=== PATIENT | female | born 1985 | race Caucasian/White ===

== ENCOUNTER 2018-01-04 16:00 | Emergency (ER) | payer OTHER | END 2018-01-04 21:24 | disposition home or self-care (01) | LOC: C.ER 16:00 | DX: O99.013 Anemia complicating pregnancy, third trimester (principal); Z3A.29 29 weeks gestation of pregnancy ==

== ENCOUNTER 2018-01-04 16:00 | Inpatient (IN) | payer OTHER ==
--- NOTE | 2018-01-04 19:14 | OBHP ---
Datetime: 01/04/2018 19:10 IP Adm Impression: , intrauterine IP Chief Complaint Other: nst Admit Comment, IP Provider: pt is here for nst for anemia, no ctxs, vb,lof+fm. obhx primi pmh den med pnv all nkda psh de nst 130 a/p at 29+weeks for anemia go to er for admission hematolgy consultion dr dominic ortiz f/u Pelvic Type - PN: Adequate Extremities - PN: Normal Abdomen - PN: Normal Back - PN: Normal Breast - PN: Normal Lungs - PN: Normal Heart - PN: Normal Thyroid - PN: Normal Neurologic - PN: Normal HEENT - PN: Normal General - PN: Normal FHR - Baseline A Provider: 130 Contraction Comments Provider: none Vital Signs Provider: Reviewed; Within Normal Limits NICHD Variability Prov Fetus A: Moderate 6-25bpm NICHD Accel Fetus A IP Provider: [id number] FHR Category Provider Fetus A: Category I Genitourinary Exam: Normal DTRs - PN: Normal
--- NOTE | 2018-01-04 19:14 | OBDCSUM ---
Datetime: 01/04/2018 17:12 Discharged to, Provider: Home Disch Instr Activity: Normal activity Disch Instr Diet: Regular Discharge Time: 01/04/2018 17:12 Disch Referrals: None Disch Activity Restrictions: No lifting Discharge Comment, Provider: go to er for admission hematolgy consultion dr dominic ortiz f/u Discharge Diagnosis Prov Other: 29wee anemia nst
--- NOTE | 2018-01-04 19:50 | C.PDOC ---
History Of Present Illness 32 year old female who is 29 weeks present to the ER with a complaint of feeling weak and lightheaded. Patient has been following up with her PMD in [place], she was found to be anemic with a hemoglobin of 9.4 in 10/2017. Patient has been taking her vitamins with iron, however, today she was found with a hemoglobin of 8.6. Patient was transferred from [place] to [facility], she had a negative screening and was brought down to the ER for evaluation and admission. Denies chest pain, SOB, abdominal pain, or vaginal bleeding. Time Seen by Provider: 01/04/18 18:56 Chief Complaint (Nursing): Abnormal Labs History Per: Patient History/Exam Limitations: no limitations Onset/Duration Of Symptoms: Hrs Current Symptoms Are (Timing): Still Present Recent travel outside of the [place]: No Past Medical History Reviewed: Historical Data, Nursing Documentation, Vital Signs Vital Signs: Last Vital Signs Temp 98.7 F 01/04/18 20:16 Pulse 105 H 01/04/18 20:16 Resp 14 01/04/18 20:16 BP 125/69 01/04/18 20:16 Pulse Ox 99 01/04/18 20:16 Surgical History: Cholecystectomy Family History: States: Unknown Family Hx - Social History Hx Alcohol Use: No Hx Substance Use: No - Immunization History Hx Tetanus Toxoid Vaccination: No Hx Influenza Vaccination: Yes Hx Pneumococcal Vaccination: No Review Of Systems Constitutional: Positive for: Weakness. Negative for: Fever, Chills Cardiovascular: Positive for: Light Headedness. Negative for: Chest Pain Respiratory: Negative for: Shortness of Breath Gastrointestinal: Negative for: Abdominal Pain Genitourinary: Negative for: Vaginal Bleeding Physical Exam - Physical Exam Appears: Non-toxic, No Acute Distress Skin: Normal Color, Warm, Dry Head: Atraumatic, Normacephalic Eye(s): bilateral: Normal Inspection Oral Mucosa: Moist Neck: Normal, Supple Chest: Symmetrical, No Tenderness Cardiovascular: Rhythm Regular Respiratory: Normal Breath Sounds, No Rales, No Rhonchi, No Wheezing Gastrointestinal/Abdominal: Soft, No Tenderness Back: No CVA Tenderness Neurological/Psych: Oriented x3, Normal Speech ED Course And Treatment - Laboratory Results Result Diagrams: 01/04/18 19:57 01/04/18 19:57 O2 Sat by Pulse Oximetry: 99 (Room air) Pulse Ox Interpretation: Normal Progress Note: Blood work ordered. Case discussed with Dr. Briseyda Chamberlain who will accept patient for admission to her service. Disposition Counseled Patient/Family Regarding: Studies Performed - Disposition Disposition: HOSPITALIZED Disposition Time: 20:26 Condition: STABLE - POA Present On Arrival: None - Clinical Impression Clinical Impression: , Symptomatic anemia - Scribe Statement The provider has reviewed the documentation as recorded by the Zeibgrace Corrigan All medical record entries made by the Zeibgrace were at my direction and personally dictated by me. I have reviewed the chart and agree that the record accurately reflects my personal performance of the history, physical exam, medical decision making, and the department course for this patient. I have also personally directed, reviewed, and agree with the discharge instructions and disposition.
[2018-01-04 20:06] LABS: BASO % 0.4 % (0.0-2.0); EOS # 0.1 K/uL (0.0-0.7); EOS % 0.8 % (0.0-4.0); HEMOGLOBIN 8.3 g/dL (11.0-16.0); LYMPH # 1.9 K/uL (1.0-4.3); LYMPH % 22.1 % (20.0-40.0); MEAN CELL VOLUME 93.3 fL (81.0-99.0); MEAN CORPUSCULAR HEMOGLOBIN 31.3 pg (27.0-31.0); MEAN CORPUSCULAR HGB CONC 33.6 g/dL (33.0-37.0); MEAN PLATELET VOLUME 6.6 fL (7.2-11.7); MONO # 0.7 K/uL (0.0-0.8); MONO % 7.8 % (0.0-10.0); NEUT # 5.8 K/uL (1.8-7.0); NEUT % 68.9 % (50.0-75.0); NRBC % 0.1 % (0.0-2.0); RBC 2.64 Mil/uL (3.80-5.20); RED CELL DISTRIBUTION WIDTH 14.2 % (11.5-14.5); WHITE BLOOD COUNT 8.4 K/uL (4.8-10.8)
[2018-01-04 20:20] LABS: ALB/GLOB RATIO 0.9 (1.0-2.1); ALBUMIN 3.4 g/dL (3.5-5.0); ALT/SGPT 11 U/L (9-52); AST/SGOT 28 U/L (14-36); BLOOD UREA NITROGEN 5 mg/dL (7-17); CALCIUM 8.8 mg/dl (8.6-10.4); GFR AFRICAN-AMERICAN > 60; GFR NON-AFRICAN AMERICAN > 60
[2018-01-05 08:10] LABS: BASO % 0.3 % (0.0-2.0); EOS # 0.1 K/uL (0.0-0.7); EOS % 1.2 % (0.0-4.0); HEMOGLOBIN 8.5 g/dL (11.0-16.0); LYMPH # 1.6 K/uL (1.0-4.3); LYMPH % 21.4 % (20.0-40.0); MEAN CELL VOLUME 92.9 fL (81.0-99.0); MEAN CORPUSCULAR HEMOGLOBIN 32.5 pg (27.0-31.0); MEAN CORPUSCULAR HGB CONC 34.9 g/dL (33.0-37.0); MEAN PLATELET VOLUME 6.5 fL (7.2-11.7); MONO # 0.7 K/uL (0.0-0.8); MONO % 8.8 % (0.0-10.0); NEUT # 5.2 K/uL (1.8-7.0); NEUT % 68.3 % (50.0-75.0); NRBC % 0.1 % (0.0-2.0); RBC 2.61 Mil/uL (3.80-5.20); WHITE BLOOD COUNT 7.6 K/uL (4.8-10.8)
[2018-01-05] MEDS ORDERED: Ferric Sodium Gluconat Complex 62.5 mg/5 ml Vial IVPB ONE ×2 (10:00→10:30)
--- NOTE | 2018-01-05 16:58 | CP.PCM.CON ---
Past Patient History - Past Social History Smoking Status: Never Smoked - PSYCHIATRIC Hx Substance Use: No - SURGICAL HISTORY Hx Cholecystectomy: Yes - ANESTHESIA Hx Anesthesia: Yes Hx Anesthesia Reactions: No Meds Allergies/Adverse Reactions: Allergies Allergy/AdvReac Type Severity Reaction Status Date / Time No Known Allergies Allergy Verified 01/04/18 19:46 Results - Vital Signs Recent Vital Signs: Last Vital Signs Temp 97.4 F L 01/05/18 07:55 Pulse 105 H 01/05/18 07:55 Resp 18 01/05/18 07:55 BP 109/65 01/05/18 07:55 Pulse Ox 98 01/05/18 07:55 - Labs Result Diagrams: 01/05/18 07:46 01/04/18 19:57 Labs: Laboratory Results - last 24 hr 01/04/18 01/04/18 01/05/18 19:57 19:57 07:46 WBC 8.4 7.6 RBC 2.64 L 2.61 L Hgb 8.3 L 8.5 L Hct 24.6 L 24.2 L MCV 93.3 92.9 MCH 31.3 H 32.5 H MCHC 33.6 34.9 RDW 14.2 14.0 Plt Count 391 379 MPV 6.6 L 6.5 L Neut % (Auto) 68.9 68.3 Lymph % (Auto) 22.1 21.4 [place] % (Auto) 7.8 8.8 Eos % (Auto) 0.8 1.2 Baso % (Auto) 0.4 0.3 Neut # (Auto) 5.8 5.2 Lymph # (Auto) 1.9 1.6 [place] # (Auto) 0.7 0.7 Eos # (Auto) 0.1 0.1 Baso # (Auto) 0.0 0.0 Retic Count Sodium 137 Potassium 3.4 L Chloride 104 Carbon Dioxide 22 Anion Gap 14 BUN 5 L Creatinine 0.6 L Est GFR ( Amer) > 60 Est GFR (Non-Af Amer) > 60 Random Glucose 86 Calcium 8.8 Total Bilirubin 0.6 AST 28 ALT 11 Alkaline Phosphatase 190 H Total Protein 7.0 Albumin 3.4 L Globulin 3.6 Albumin/Globulin Ratio 0.9 L 01/05/18 09:54 WBC RBC Hgb Hct MCV MCH MCHC RDW Plt Count MPV Neut % (Auto) Lymph % (Auto) [place] % (Auto) Eos % (Auto) Baso % (Auto) Neut # (Auto) Lymph # (Auto) [place] # (Auto) Eos # (Auto) Baso # (Auto) Retic Count 2.2 H Sodium Potassium Chloride Carbon Dioxide Anion Gap BUN Creatinine Est GFR ( Amer) Est GFR (Non-Af Amer) Random Glucose Calcium Total Bilirubin AST ALT Alkaline Phosphatase Total Protein Albumin Globulin Albumin/Globulin Ratio
--- NOTE | 2018-01-05 17:34 | CP.PCM.HP ---
History of Present Illness - History of Present Illness History of Present Illness: 32 y/o @ 29.6 wks admitted for severe sympaotmic anemia, pt reprots fatigue not alleviated with rest. pt on po iron . pt dnies fever, chills, nasue , vomitng, cps, sob, bowel ro bladder compliants. 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, fibroids, voarian cyst, sti PMH: Denies PSH: denies FHX ;non contibutory MEDS: PNV NKDA SHX: negative etoh/tobaccodur.g Present on Admission - Present on Admission Any Indicators Present on Admission: No Review of Systems - Review of Systems All systems: reviewed and no additional remarkable complaints except Review of Systems: fatigue - Constitutional Constitutional: As Per HPI - EENT Eyes: As Per HPI Ears: absent: As Per HPI, Decreased Hearing, Ear Discharge, Ear Pain, Tinnitus, Abnormal Hearing, Disequilibrium, Dizziness, Other - Cardiovascular Cardiovascular: absent: As Per HPI, Acrocyanosis, Chest Pain, Chest Pain at Rest , Chest Pain with Activity, Claudication, Diaphoresis, Dyspnea, Dyspnea on Exertion, Edema, Irregular Heart Rhythm, Pain Radiating to Arm/Neck/Jaw, Leg Edema, Leg Ulcers, Lightheadedness, Orthopnea, Palpitations, Paroxysmal Nocturnal Dyspnea, Pedal Edema, Radiating Pain, Rapid Heart Rate, Slow Heart Rate, Syncope, Other - Respiratory Respiratory: absent: As Per HPI, Cough, Dyspnea, Hemoptysis, Dyspnea on Exertion , Wheezing, Snoring, Stridor, Pain on Inspiration, Chest Congestion, Excessive Mucous Production, Change in Mucous Color, Pain with Coughing, Other - Gastrointestinal Gastrointestinal: absent: As Per HPI, Abdominal Pain, Belching, Bloating, Change in Bowel Habits, Change in Stool Character, Coffee Ground Emesis, Constipation, Cramping, Diarrhea, Dyspepsia, Dysphagia, Early Satiety, Excessive Flatus, Fecal Incontinence, Heartburn, Hematemesis, Hematochezia, Loose Stools, Melena, Nausea, Odynophagia, Temesmus, Vomiting, Other - Genitourinary Genitourinary: absent: As Per HPI, Change in Urinary Stream, Difficulty Urinating, Dysuria, Flank Pain, Hematuria, Pyuria, Nocturia, Urinary Incontinence, Urinary Frequency, Urinary Hesitance, Urinary Urgency, Voiding Freq/Small Amts, Freq UTI, Hx Renal/Bladder Calculi, Hx /Renal Surgery, Bladder Distension, Other - Reproductive: Female Reproductive:Female: Amenorrhea - Integumentary Integumentary: absent: As Per HPI, Acne, Alopecia, Bleeding Lesions, Change in Hair, Change in Nails, Change in Pigmentation, Changing Lesions, Dry Skin, Erythema, Furuncle, Hirsutism, Lesions, New Lesions, Non-Healing Lesions, Photosensitivity, Pruritus, Rash, Skin Pain, Skin Ulcer, Sores, Striae, Swelling , Unusual Bruising, Wounds, Jaundice, Other - Neurological Neurological: absent: As Per HPI, Abnormal Gait, Abnormal Hearing, Abnormal Movements, Abnormal Speech, Behavioral Changes, Burning Sensations, Confusion, Convulsions, Disequilibrium, Dizziness, Numbness, Focal Weakness, Frequent Falls , Headaches, Lack of Coordination, Loss of Vision, Memory Loss, Paresthesias, Radicular Pain, Restless Legs, Sensory Deficit, Syncope, Tingling, Tremor, Vertigo, Weakness, Other Visual Disturbances, Other - Psychiatric Psychiatric: absent: As Per HPI, Abnormal Sleep Pattern, Anhedonia, Anxiety, Auditory Hallucinations, Behavioral Changes, Change in Appetite, Change in Libido, Confusion, Depression, Difficulty Concentrating, Hallucinations, Homicidal Ideation, Hopelessness, Irritability, Memory Loss, Mood Swings, Panic Attacks, Paranoia, Suicidal Ideation, Visual Hallucinations, Tactile Hallucinations, Other - Hematologic/Lymphatic Hematologic: absent: As Per HPI, Easy Bleeding, Easy Bruising, Lymphadenopathy, Other Past Patient History - Infectious Disease Hx of Infectious Diseases: None - Past Social History Smoking Status: Never Smoked Alcohol: None - PSYCHIATRIC Hx Substance Use: No - SURGICAL HISTORY Hx Cholecystectomy: Yes - ANESTHESIA Hx Anesthesia: Yes Hx Anesthesia Reactions: No Meds Allergies/Adverse Reactions: Allergies Allergy/AdvReac Type Severity Reaction Status Date / Time No Known Allergies Allergy Verified 01/04/18 19:46 Physical Exam - Constitutional Appears: Well, No Acute Distress - Head Exam Head Exam: ATRAUMATIC, NORMAL INSPECTION - Eye Exam Eye Exam: EOMI, Normal appearance - ENT Exam ENT Exam: Mucous Membranes Moist - Neck Exam Neck exam: Positive for: Normal Inspection - Respiratory Exam Respiratory Exam: Clear to Auscultation Bilateral, NORMAL BREATHING PATTERN - Cardiovascular Exam Cardiovascular Exam: +S1, +S2 - GI/Abdominal Exam GI & Abdominal Exam: Normal Bowel Sounds, Soft - Rectal Exam Rectal Exam: NORMAL INSPECTION - Extremities Exam Extremities exam: Negative for: calf tenderness, full ROM, joint swelling, normal capillary refill, normal inspection, pedal edema, tenderness, pedal pulses present - Back Exam Back exam: NORMAL INSPECTION - Neurological Exam Neurological exam: CN II-XII Intact, Normal Gait, Oriented x3 - Psychiatric Exam Psychiatric exam: Normal Affect, Normal Mood - Skin Skin Exam: Dry Results - Vital Signs Recent Vital Signs: Last Vital Signs Temp 97.4 F L 01/05/18 07:55 Pulse 105 H 01/05/18 07:55 Resp 18 01/05/18 07:55 BP 109/65 01/05/18 07:55 Pulse Ox 98 01/05/18 07:55 - Labs Result Diagrams: 01/05/18 07:46 01/04/18 19:57 Labs: Laboratory Results - last 24 hr 01/04/18 01/04/18 01/05/18 19:57 19:57 07:46 WBC 8.4 7.6 RBC 2.64 L 2.61 L Hgb 8.3 L 8.5 L Hct 24.6 L 24.2 L MCV 93.3 92.9 MCH 31.3 H 32.5 H MCHC 33.6 34.9 RDW 14.2 14.0 Plt Count 391 379 MPV 6.6 L 6.5 L Neut % (Auto) 68.9 68.3 Lymph % (Auto) 22.1 21.4 [place] % (Auto) 7.8 8.8 Eos % (Auto) 0.8 1.2 Baso % (Auto) 0.4 0.3 Neut # (Auto) 5.8 5.2 Lymph # (Auto) 1.9 1.6 [place] # (Auto) 0.7 0.7 Eos # (Auto) 0.1 0.1 Baso # (Auto) 0.0 0.0 Retic Count Sodium 137 Potassium 3.4 L Chloride 104 Carbon Dioxide 22 Anion Gap 14 BUN 5 L Creatinine 0.6 L Est GFR ( Amer) > 60 Est GFR (Non-Af Amer) > 60 Random Glucose 86 Calcium 8.8 Total Bilirubin 0.6 AST 28 ALT 11 Alkaline Phosphatase 190 H Total Protein 7.0 Albumin 3.4 L Globulin 3.6 Albumin/Globulin Ratio 0.9 L 01/05/18 09:54 WBC RBC Hgb Hct MCV MCH MCHC RDW Plt Count MPV Neut % (Auto) Lymph % (Auto) [place] % (Auto) Eos % (Auto) Baso % (Auto) Neut # (Auto) Lymph # (Auto) [place] # (Auto) Eos # (Auto) Baso # (Auto) Retic Count 2.2 H Sodium Potassium Chloride Carbon Dioxide Anion Gap BUN Creatinine Est GFR ( Amer) Est GFR (Non-Af Amer) Random Glucose Calcium Total Bilirubin AST ALT Alkaline Phosphatase Total Protein Albumin Globulin Albumin/Globulin Ratio Assessment & Plan (1) Symptomatic anemia Assessment and Plan: 32 y/o @ 29.6 wks with severe sympoatic anemia -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
--- NOTE | 2018-01-05 18:26 | CP.PCM.CON ---
History of Present Illness - History of Present Illness History of Present Illness: 32 year old female who is 29 weeks , admitted with symptomatic anemia. The patient reports to feeling progressively weak and light headed. She notes her symptoms are not alleviated by rest. She denies chest pain and shortness of breath. She does not wish to have a blood transfusion. She is s/p 1 dose of Ferrlecit and reports to feeling better. Past medical history: Anemia Past surgical history: Cholecystectomy Family history: Denies hematologic and oncologic problems Social history: Denies tobacco, alcohol, and illicit drug use. Allergies: NKA Review of systems: All remaining review of systems including HEENT, cardiovascular, respiratory, gastrointestinal, genitourinary, musculoskeletal, dermatologic, neurologic, and psychiatric are negative unless mentioned in the HPI. Past Patient History - Infectious Disease Hx of Infectious Diseases: None - Past Social History Smoking Status: Never Smoked Alcohol: None - PSYCHIATRIC Hx Substance Use: No - SURGICAL HISTORY Hx Cholecystectomy: Yes - ANESTHESIA Hx Anesthesia: Yes Hx Anesthesia Reactions: No Meds Allergies/Adverse Reactions: Allergies Allergy/AdvReac Type Severity Reaction Status Date / Time No Known Allergies Allergy Verified 01/04/18 19:46 Physical Exam - Head Exam Head Exam: ATRAUMATIC - Eye Exam Eye Exam: Normal appearance - ENT Exam ENT Exam: Mucous Membranes Dry - Respiratory Exam Respiratory Exam: NORMAL BREATHING PATTERN - Cardiovascular Exam Cardiovascular Exam: +S1, +S2 - GI/Abdominal Exam GI & Abdominal Exam: Normal Bowel Sounds - Extremities Exam Extremities exam: Positive for: normal inspection - Neurological Exam Neurological exam: Oriented x3 - Psychiatric Exam Psychiatric exam: Normal Affect, Normal Mood - Skin Skin Exam: Warm Results - Vital Signs Recent Vital Signs: Last Vital Signs Temp 97.7 F 01/05/18 15:00 Pulse 105 H 01/05/18 15:00 Resp 20 01/05/18 15:00 BP 95/55 L 01/05/18 15:00 Pulse Ox 98 01/05/18 15:00 - Labs Result Diagrams: 01/05/18 07:46 01/04/18 19:57 Labs: Laboratory Results - last 24 hr 01/04/18 01/04/18 01/05/18 19:57 19:57 07:46 WBC 8.4 7.6 RBC 2.64 L 2.61 L Hgb 8.3 L 8.5 L Hct 24.6 L 24.2 L MCV 93.3 92.9 MCH 31.3 H 32.5 H MCHC 33.6 34.9 RDW 14.2 14.0 Plt Count 391 379 MPV 6.6 L 6.5 L Neut % (Auto) 68.9 68.3 Lymph % (Auto) 22.1 21.4 [place] % (Auto) 7.8 8.8 Eos % (Auto) 0.8 1.2 Baso % (Auto) 0.4 0.3 Neut # (Auto) 5.8 5.2 Lymph # (Auto) 1.9 1.6 [place] # (Auto) 0.7 0.7 Eos # (Auto) 0.1 0.1 Baso # (Auto) 0.0 0.0 Retic Count Sodium 137 Potassium 3.4 L Chloride 104 Carbon Dioxide 22 Anion Gap 14 BUN 5 L Creatinine 0.6 L Est GFR ( Amer) > 60 Est GFR (Non-Af Amer) > 60 Random Glucose 86 Calcium 8.8 Total Bilirubin 0.6 AST 28 ALT 11 Alkaline Phosphatase 190 H Total Protein 7.0 Albumin 3.4 L Globulin 3.6 Albumin/Globulin Ratio 0.9 L 01/05/18 09:54 WBC RBC Hgb Hct MCV MCH MCHC RDW Plt Count MPV Neut % (Auto) Lymph % (Auto) [place] % (Auto) Eos % (Auto) Baso % (Auto) Neut # (Auto) Lymph # (Auto) [place] # (Auto) Eos # (Auto) Baso # (Auto) Retic Count 2.2 H Sodium Potassium Chloride Carbon Dioxide Anion Gap BUN Creatinine Est GFR ( Amer) Est GFR (Non-Af Amer) Random Glucose Calcium Total Bilirubin AST ALT Alkaline Phosphatase Total Protein Albumin Globulin Albumin/Globulin Ratio Assessment & Plan (1) Symptomatic anemia Assessment and Plan: will check retic count, b12, folate, ferritin to further characterize s/p 1 dose of Ferrlecit cleared from hematology standpoint for D/C outpatient f/u and continuation of IV iron Thank you for this interesting consult. Status: Acute
[2018-01-05 21:08] LABS: FERRITIN 11.2 ng/mL
[2018-01-06 00:28] VITALS: TEMP 98.2
[2018-01-06 08:13] VITALS: RESP 18
[2018-01-06] MEDS ORDERED: Ferric Sodium Gluconat Complex 62.5 mg/5 ml Vial IVPB ONE (12:00)
[2018-01-06 22:35] VITALS: BP 113/72; PULSE 108; O2SAT 97
== END 2018-01-06 14:45 | disposition home or self-care (01) | DRG 781 ==
LOC: C.ER 16:00 → C.EROB 17:30 → C.9E 19:59 → C.4M 21:24
PROVIDERS: ADMIT Obstetrics & Gynecology; ATTEND Obstetrics & Gynecology
DX: O99.013 Anemia complicating pregnancy, third trimester (principal); Z3A.29 29 weeks gestation of pregnancy

== ENCOUNTER 2018-03-04 07:41 | Inpatient (IN) | payer OTHER ==
[2018-03-04] MEDS ORDERED: Lactated Ringer's 1,000 ML IV ONE (07:48)
--- NOTE | 2018-03-04 09:11 | OBHP ---
Datetime: 03/04/2018 08:59 IP Adm Impression: Term, intrauterine IP Admit Plan: Admit to unit Admit Comment, IP Provider: @ 37.3 wks GA c/o LOF since yesterday with mucos like dicharge t his monring. pt repro crmapign pian more instensiyt since this morning eveyr 5 min increasing instiey adn seveirty snce yesterday01/31. 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 PSH: denies FHX: non contriotyr MEDS: Iron, Pnv NDKA SHX: negative etoh/tobacc/durgs A/P @ 37.3 wks GA IOL for oligohydrmanis admi tto L+D npo, vif admisson labs cytotec pain maamet conto toco and efm Pelvic Type - PN: Adequate Extremities - PN: Normal Abdomen - PN: Normal Back - PN: Normal Breast - PN: Normal Lungs - PN: Normal Heart - PN: Normal Thyroid - PN: Normal Neurologic - PN: Normal HEENT - PN: Normal General - PN: Normal Presentation-Admit: Vertex FHR - Baseline A Provider: 150 Membranes, Provider: Intact Contraction Comments Provider: q 2-5 min Comments, ACOG Physical Exam: [place] vtx; BAO 5cm Gestation - Est Wks by US: 37.3 IP Hx Assessment: The History has been Reviewed and is Current EGA AdmitDate IP: 37.3 Vital Signs Provider: Reviewed; Within Normal Limits IP Chief Complaint: Suspected ruptured membranes NICHD Variability Prov Fetus A: Moderate 6-25bpm NICHD Decel Fetus A IP Provider: None Dilatation, Provider: 2 Effacement, Provider: 50 Station, Provider: -3 Genitourinary Exam: Normal DTRs - PN: Normal
[2018-03-04 10:32] LABS: BASO % 0.6 % (0.0-2.0); EOS # 0.1 K/uL (0.0-0.7); EOS % 1.3 % (0.0-4.0); HEMOGLOBIN 9.7 g/dL (11.0-16.0); LYMPH # 1.4 K/uL (1.0-4.3); LYMPH % 24.5 % (20.0-40.0); MEAN CELL VOLUME 93.4 fL (81.0-99.0); MEAN CORPUSCULAR HEMOGLOBIN 32.2 pg (27.0-31.0); MEAN CORPUSCULAR HGB CONC 34.5 g/dL (33.0-37.0); MEAN PLATELET VOLUME 7.5 fL (7.2-11.7); MONO # 0.6 K/uL (0.0-0.8); MONO % 10.6 % (0.0-10.0); NEUT # 3.5 K/uL (1.8-7.0); NRBC % 0.2 % (0.0-2.0); RBC 3.03 Mil/uL (3.80-5.20); RED CELL DISTRIBUTION WIDTH 16.2 % (11.5-14.5); WHITE BLOOD COUNT 5.6 K/uL (4.8-10.8)
[2018-03-04 10:44] LABS: SQUAMOUS EPITHIAL 9 /hpf (0-5); URINE BACTERIA RARE (<OCC); URINE BILIRUBIN NEGATIVE (NEGATIVE); URINE BLOOD 2+ (NEGATIVE); URINE CLARITY Hazy (Clear); URINE COLOR Yellow (YELLOW); URINE GLUCOSE (UA) NORMAL (Normal); URINE LEUKOCYTE ESTERASE 1+ Leu/uL (Negative); URINE PROTEIN NEGATIVE (NEGATIVE); URINE UROBILINOGEN NORMAL mg/dL (0.2-1.0)
[2018-03-04 10:47] LABS: BLOOD UREA NITROGEN 9 mg/dL (7-17); CALCIUM 9.2 mg/dl (8.6-10.4); GFR AFRICAN-AMERICAN > 60; GFR NON-AFRICAN AMERICAN > 60
[2018-03-04] MEDS ORDERED: Oxytocin 30 UNIT 30 UNITS/500 ML BAG IV SCH (11:15)
--- NOTE | 2018-03-04 11:17 | OBPN ---
Datetime: 03/04/2018 11:10 IP Progress Impression: Normal progression of labor IP Informed Consent Obtain: Vaginal Delivery IP Progress Plan: Continue present management Membranes, Provider: Intact Contraction Comments Provider: q 3-5 min FHR - Baseline A Provider: 140 Gestation - Est Wks by US: 37.3 Presentation-Admit: Vertex IP Progress Note Comment: pt seen nancy barker for progresin of laobr c/o pain . dnies lvb, +Fm VSS EMF: Cat I TOCO: q 3 min A/P @ 37.3 wks GA IOL for oligohydramios cont current protocol pitocin augemtnatin as per protoocl Vital Signs Provider: Reviewed; Within Normal Limits NICHD Variability Prov Fetus A: Moderate 6-25bpm Dilatation, Provider: 3 Effacement, Provider: 60 Station, Provider: -2 NICHD Decel Fetus A IP Provider: None
--- NOTE | 2018-03-04 13:11 | OBPN ---
Datetime: 03/04/2018 13:05 IP Progress Impression: Normal progression of labor; Reassuring heart rate; Rupture of membran es IP Informed Consent Obtain: Vaginal Delivery IP Progress Plan: Continue present management Membranes, Provider: Ruptured Amniotic Fluid Color, Provider: Clear Contraction Comments Provider: q 2-3 m in FHR - Baseline A Provider: 145 Gestation - Est Wks by US: 37.3 Presentation-Admit: Vertex IP Progress Note Comment: pt with latevarieable with SORM celar VSS EMF: 140/mod vibha with intermitten late deceriaton improved with repositiong TOCO: q 1-2 im A/P @ 37.3 wks GA in labor pain managment epidurla cont toco adn efm possible considertion of terbulatine ivh left lateral ivh, oxygen resusctivation measures Vital Signs Provider: Reviewed; Within Normal Limits NICHD Variability Prov Fetus A: Moderate 6-25bpm Dilatation, Provider: 4 Effacement, Provider: 60 Station, Provider: -2
[2018-03-04] MEDS ORDERED: Bupivacaine HCl/FentaNYL Cit 100 ML EPI ONE (13:24)
[2018-03-04] MEDS ORDERED: Oxycodone/Acetaminophen 5/325 mg Tab PO PRN ×2 (15:45)
--- NOTE | 2018-03-04 15:55 | OBDS ---
DELIVERY PERSONNEL Delivery Doctor: Indiana Chamberlain MD Car Refinisher: Shantell Pal RN Anesthesiologist: Qian Jones MD MATERNAL INFORMATION Delivery Anesthesia: Epidural Medications in Delivery: none Estimated Blood Loss (ml): 100 Placenta Cultured: No Provider Comments: pt was fully dilated and pushing. atrumatic, spontaneous delivery of head in OA p osition, no nuchal cord noted. Atuatmic, spotneoau deliveyr of anterior followed by posterior shoulde r followed by delivery of the body, left arm cord reduced. Both oral and nasal passages of the baby w ere bulb suctioned. Umbilcial cord clamped adn cut. Baby handed to mother on abodmen with RN vladimir chiu. Cord blood and cord gases collected and sent x 2. Sponatneous delivery of intact placenta with m balta. Fundus firm, good hemostaiss. Intact perinum, no lacerations. Goood hemostasis, no complica tions Live male ifnat agpsr 9,9 weight of ebl 100 weight of 6lbs 7 ounces no complications LABOR SUMMARY EDC: 03/22/2018 00:00 No. Babies in Womb: 1 Attempted: No Labor Anesthesia: Epidural LABOR INFORMATION Reason for Induction Other: oligohydramnios Onset of Labor: 03/04/2018 11:11 Complete Dilatation: 03/04/2018 15:30 Cervical Ripening Agents: Cytotec @ Oxytocin: N/A Group B Beta Strep: Negative Antibiotics # of Doses: n/a Steroids Given: None Reason Steroids Not Administered: Not Applicable MEMBRANES Membranes Rupture Method: Spontaneous Rupture of Membranes: 03/04/2018 12:59 Length of Rupture (hrs): 2.60 Amniotic Fluid Color: Clear Amniotic Fluid Amount: Small Amniotic Fluid Odor: None STAGES OF LABOR Stage 1 hrs: 4 Stage 1 min: 19 Stage 2 hrs: 0 Stage 2 min: 5 Stage 3 hrs: 0 Stage 3 min: 2 Total Time in Labor hrs: 4 Total Time in Labor min: 26 VAGINAL DELIVERY Episiotomy: None Laceration Extension: N/A Laceration Type: None Other Laceration: n/a Laceration Repair: Not Applicable Initial Vag Sponge Count: 10 Final Vag Sponge Count: 10 Initial Vag Sharps Count: 0 Final Vag Sharps Count: 0 Sponge Count Correct: Yes Sharps Count Correct: N/A BABY A INFORMATION Delivery Date/Time: 03/04/2018 15:35 Method of Delivery: Vaginal Born in Route : No : N/A Forceps: N/A Vacuum Extraction: N/A Shoulder Dystocia : No SHOULDER DYSTOCIA BABY A Infant Delivery Date/Time: 03/04/2018 15:35 PRESENTATION/POSITION BABY A Presentation: Cephalic Cephalic Presentation: Vertex Breech Presentation: N/A PLACENTA INFORMATION BABY A Placenta Delivery Time : 03/04/2018 15:37 Placenta Method of Delivery: Spontaneous Placenta Status: Delivered SCORES BABY A Heart Rate 1 min: >100 bpm Resp Effort 1 min: Good Cry Reflex Irritability 1 min: Cough or Sneeze or Pulls Away Muscle Tone 1 min: Active Motion Color 1 min: Body [place], Extremities Blue Resuscitation Effort 1 min: Tactile Stimulation SCORE 1 MIN: 9 Heart Rate 5 min: >100 bpm Resp Effort 5 min: Good Cry Reflex Irritability 5 min: Cough or Sneeze or Pulls Away Muscle Tone 5 min: Active Motion Color 5 min: Completely [place] Resuscitation Effort 5 min: N/A SCORE 5 MIN: 10 INFORMATION BABY A Gestational Age at Delivery: 37.3 Gestational Status: Infant Outcome : Liveborn Infant Condition : Stable Sex: Male IDENTIFICATION/MEDS BABY A ID Band Number: [id number] Sensor Applied: Yes Sensor Number: [id number] WEIGHT/LENGTH BABY A Birthweight (gms): 2935 Weight (lb): 6 Infant Weight (oz): 7 Infant Length Inches: 19.25 Length cms: 48.9 CORD INFORMATION BABY A No. Cord Vessels: 3 Nuchal Cord : N/A Nuchal Cord Other: cord around left arm Cord Blood Taken: Yes Suction: Mouth; Nose
--- NOTE | 2018-03-05 08:48 | OBPPN ---
Datetime: 03/05/2018 08:46 PP Pain Prov: Within normal limits PP Nausea Prov: Denies PP Flatus Prov: Yes PP BM Prov: No PP Breasts Prov: Normal PP Heart Prov: Normal PP Lungs Prov: Normal PP Abdomen/Uterus Prov: Normal PP Lochia Prov: Normal PP Vulva/Perineum Prov: Normal PP CVA Tenderness Prov: Normal PP Extremities Prov: Normal PP C/S Incision Prov: Not Applicable PP Progress Prov: Normal PP Impression Prov: Normal progression PP Plan Prov: Continue present management PP Progress Note Prov: pt seen and examiend adn reprots pain controlled with medication. pt is ambul ating, voidng passing flatus, tolerating regular diet. pt denies any fevers, chills, nause, vomiting, cp, sob, bowel or bladder complaints. Pt is breast feeding and denies any feelings of sadness or dep ression. VSS PE: GEN NAD AAO x 3 BREAST: NT, Non engorged b/l CVS:RRR< +S1/S2 ABS: Soft, NT, nd , no guarding no rebound tenderness no rigidity, +BS FUNDUS: Firm at level of umbilicus VE: minimal lochia, non foul smelling EXT: negative homans sign, no calf tendeness A/P s/p PPD #1 doing well f/u am labs pain managment encourage breast feedign adn ambulation Vital Signs Provider PP: Reviewed; Within Normal Limits
[2018-03-05 08:52] LABS: BASO % 0.3 % (0.0-2.0); EOS # 0.1 K/uL (0.0-0.7); EOS % 1.1 % (0.0-4.0); HEMOGLOBIN 9.8 g/dL (11.0-16.0); LYMPH # 1.4 K/uL (1.0-4.3); LYMPH % 17.6 % (20.0-40.0); MEAN CELL VOLUME 94.1 fL (81.0-99.0); MEAN CORPUSCULAR HEMOGLOBIN 32.2 pg (27.0-31.0); MEAN CORPUSCULAR HGB CONC 34.2 g/dL (33.0-37.0); MONO # 0.7 K/uL (0.0-0.8); MONO % 8.1 % (0.0-10.0); NEUT # 5.9 K/uL (1.8-7.0); NEUT % 72.9 % (50.0-75.0); RBC 3.04 Mil/uL (3.80-5.20); RED CELL DISTRIBUTION WIDTH 16.2 % (11.5-14.5); WHITE BLOOD COUNT 8.1 K/uL (4.8-10.8)
[2018-03-05] MEDS: Multiple Vitamins Tab PO SCH (10:07)
[2018-03-05 15:55] VITALS: RESP 18
--- NOTE | 2018-03-06 06:42 | OBPPN ---
Datetime: 03/06/2018 06:40 PP Pain Prov: Within normal limits PP Nausea Prov: Denies PP Flatus Prov: Yes PP Breasts Prov: Normal PP Heart Prov: Normal PP Lungs Prov: Normal PP Abdomen/Uterus Prov: Normal PP Lochia Prov: Normal PP Vulva/Perineum Prov: Normal PP CVA Tenderness Prov: Normal PP Extremities Prov: Normal PP C/S Incision Prov: Not Applicable PP Progress Prov: Normal PP Impression Prov: Normal progression PP Plan Prov: Continue present management; Discharge PP Progress Note Prov: pt seen and examiend adn reprots pain controlled with medication. pt is ambul ating, voidng passing flatus, tolerating regular diet. pt denies any fevers, chills, nause, vomiting, cp, sob, bowel or bladder complaints. Pt is breast feeding and denies any feelings of sadness or dep ression. VSS PE: GEN NAD AAO x 3 BREAST: NT, Non engorged b/l CVS:RRR< +S1/S2 ABS: Soft, NT, nd , no guarding no rebound tenderness no rigidity, +BS FUNDUS: Firm at level of umbilicus VE: minimal lochia, non foul smelling EXT: negative homans sign, no calf tendeness A/P s/p PPD #2 doing well stable for discharge dc home rto 6 week pregiou givne Vital Signs Provider PP: Reviewed; Within Normal Limits
--- NOTE | 2018-03-06 06:42 | OBDCSUM ---
Datetime: 03/06/2018 06:41 Discharged to, Provider: Home Follow up at, Provider: Dr casanova Disch Instr Activity: Normal activity Disch Instr Diet: Regular Discharge Instructions, Provider: Routine instructions given Discharge Diagnosis, Provider: Term Delivered Discharge Time: 03/06/2018 06:41 Follow up in weeks, Provider: 4 weeks Disch Referrals: None Contraception discussed, Prov: Yes Disch Activity Restrictions: No sexual activity; Nothing in vagina - [place], tampons, douche Discharge Comment, Provider: precaitpm given Contraception after Delivery: Not Planning to Use
[2018-03-06] MEDS: Multiple Vitamins Tab PO SCH (10:03)
[2018-03-06 18:58] VITALS: BP 111/74; PULSE 75; TEMP 97.7; O2SAT 98
== END 2018-03-06 13:30 | disposition home or self-care (01) | DRG 775 ==
LOC: C.EROB 07:41 → C.4D 07:48 → C.4M 17:23
PROVIDERS: ADMIT Obstetrics & Gynecology; ATTEND Obstetrics & Gynecology
PROC: 10E0XZZ Delivery of Products of Conception, External Approach (ICD-10-PCS; principal; 2018-03-04)
DX: O41.03X0 Oligohydramnios, third trimester, not applicable or unspecified (principal); Z3A.37 37 weeks gestation of pregnancy; O69.81X0 Labor and delivery complicated by cord around neck, without compression, not applicable or unspecified; Z37.0 Single live birth

== ENCOUNTER 2018-03-04 07:41 | Emergency (ER) | payer OTHER | END 2018-03-04 17:23 | disposition home or self-care (01) | LOC: C.ER 07:41 | DX: O26.893 Other specified pregnancy related conditions, third trimester (principal); Z3A.37 37 weeks gestation of pregnancy ==

== ENCOUNTER 2018-04-19 09:53 | Day surgery (SDC) | payer OTHER ==
[2018-04-13 09:40] VITALS: BMI 23.8
[2018-04-19] MEDS ORDERED: Propofol 10 mg/ml Inj (20 ML) ONE (10:23)
[2018-04-19] MEDS ORDERED: ceFAZolin IV 1 gm in Dextrose 2 GM/100 ML BAG IVPB ONE (10:26)
[2018-04-19] MEDS ORDERED: Bupivacaine 0.25% 20 ML INJ IJ ONE (10:53)
[2018-04-19] MEDS ORDERED: Succinylcholine Chloride 20 mg/ml Syr (5 ml) IV ONE (11:02)
[2018-04-19] MEDS ORDERED: Neostigmine Methylsulfate 3mg/3ml Syringe IV ONE ×2 (11:02→11:45)
[2018-04-19] MEDS: HYDROmorphone 0.5 mg/0.5 ml ISec IVP PRN ×2 (12:16→12:45)
[2018-04-19 13:38] VITALS: RESP 16
[2018-04-19 15:16] VITALS: BP 130/78; PULSE 58; TEMP 97.6; O2SAT 99
--- NOTE | 2018-04-20 00:30 | OP ---
PROCEDURE DATE: 04/19/2018 PREOPERATIVE DIAGNOSES: Multiparity, desires permanent tubal sterilization. POSTOPERATIVE DIAGNOSIS: Multiparity, desires permanent tubal sterilization. OPERATION PERFORMED: Operative laparoscopy, laparoscopic bilateral salpingectomy. SURGEON: Gianna Chamberlain MD CONFIGURATION CONSULTANT: Blaze Martins MD TYPE OF ANESTHESIA: General LMA. OPERATIVE FINDINGS: Eight to ten weeks' size anteverted uterus, normal-appearing tubes and ovaries bilaterally. Dr. Blaze Martins, surgical clinical reviewer, was present for the entire case, essentially in gaining laparoscopic entry, retraction, holding the camera, helping to retract the fallopian tubes, removing the specimen, and closing all layers and was present for the entire case. SPECIMEN REMOVED: Right and left fallopian tubes. ESTIMATED BLOOD LOSS: 10 mL. BLOOD PRODUCTS: None. COMPLICATIONS: None. DESCRIPTION OF PROCEDURE: The patient was taken to the operating room where she was given general anesthesia. Once it was found adequate, she was placed on the operating table in the dorsal supine position with legs supported using stirrups. The patient was prepped and draped in the usual sterile fashion. A time-out confirmed correct patient and correct procedure. A Segal catheter was then inserted in the urethra to drain the bladder. Bimanual exam was performed with the above mentioned findings. A Rios retractor was placed in the anterior and posterior fornix of the vagina. The cervix was adequately visualized. A single-tooth tenaculum was placed in the anterior lip of the cervix. The uterus was then sounded to 7 cm. Following this, the cervix was sequentially dilated to allow for introduction of the HUMI uterine manipulator, which was insufflated with air. The single-tooth tenaculum was removed, and there was good hemostasis noted. All instruments were removed except the HUMI uterine manipulator. Following this, the surgeon then re-gloved. Attention was then turned to the abdomen in which a 5-mm infraumbilical incision was made after the application of 0.25% Marcaine. The skin was then tented up with two towel clips. An infraumbilical incision was made. The Veress needle was then inserted and confirmation was placed by normal saline and also confirmation of the normal opening pressure. The abdomen was then insufflated after normal opening pressure of up to 50 mmHg. Following this, the Veress needle was then removed, and the 5-mm laparoscope was inserted under direct visualization. There was confirmation of placement. Following this, there were normal tubes and ovaries bilaterally. The patient was then placed in Trendelenburg position, and the bowel was then removed from the operative view. There was normal inspection of the abdominal and peritoneal cavity. Following this, a 5-mm skin incision was made after the application of 0.25% Marcaine local anesthetic in the right and left lower quadrants. A trocar was placed under direct visualization. Following this, a [place] clamp was used to grab to help retract the distal end of the fimbriated end of fallopian tube, which was placed on traction and using the 5-mm LigaSure device was then inserted along the mesosalpinx, cauterized, and cut up to the level of the close proximity of the cornua. The tube was removed in entirety on both the right and left sides. There was good hemostasis noted. The abdomen was suction irrigated. There was good hemostasis noted. All instruments were removed, the trocars were removed under direct visualization. There was good hemostasis noted. The abdomen was then desufflated. The skin was reapproximated and closed with 4-0 Monocryl in a running subcuticular fashion. The HUMI uterine manipulator and Segal catheter were removed. At the end of the procedure, all needle, sponge, and instrument counts were noted to be correct x2. The patient tolerated the procedure well and was transferred to the recovery room in stable condition. Gianna Chamberlain MD
== END 2018-04-19 14:20 | disposition home or self-care (01) ==
LOC: C.SDS 09:53
PROVIDERS: ATTEND Obstetrics & Gynecology
DX: Z30.2 Encounter for sterilization (principal); Z30.09 Encounter for other general counseling and advice on contraception
CPT/HCPCS: 58670; 88302; J0131; J0690; J1100; J1170; J2001; J2405; J2704; J2710; J3010